=== PATIENT | female | born 1975 | race Caucasian/White ===

== ENCOUNTER → 2023-07-23 17:28 | Outpatient (REF) | payer OTHER, SELFPAY | LOC: WDC 17:28 | PROVIDERS: ATTENDING PHYSICIAN Internal Medicine; FAMILY PHYSICIAN Nurse Practitioner Women's Health | DX: Z12.31 Encounter for screening mammogram for malignant neoplasm of breast (principal) | CPT/HCPCS: 77063; 77067 ==

== ENCOUNTER → 2023-08-10 14:25 | Outpatient (REF) | payer OTHER, SELFPAY | LOC: HWRAD 14:25 | PROVIDERS: ATTENDING PHYSICIAN Nurse Practitioner; FAMILY PHYSICIAN Internal Medicine | DX: R10.84 Generalized abdominal pain (principal) | CPT/HCPCS: 76770 ==

== ENCOUNTER → 2023-09-01 06:28 | Day surgery (SDC) | payer OTHER, SELFPAY | LOC: GI 06:28 | PROVIDERS: ATTENDING PHYSICIAN Internal Medicine Gastroenterology | DX: Z12.11 Encounter for screening for malignant neoplasm of colon (principal); Z83.719 Family history of colon polyps, unspecified; K57.30 Diverticulosis of large intestine without perforation or abscess without bleeding | CPT/HCPCS: G0105 ==

== ENCOUNTER 2025-03-19 11:32 | Emergency (ER) | payer OTHER, SELFPAY ==
[2025-03-19] VITALS (11 sets, daily range): BP systolic 91–113; BP diastolic 61–77; PULSE 94–126; BMI 31.7
[2025-03-19 12:16] LABS: Hematocrit 39.9 % (37.0-47.0); Hemoglobin 12.9 g/dL (12.0-16.0); Mean Corp Hgb Conc. 32.3 g/dL (33.0-37.0); Mean Corpuscular Volume 87.9 fL (81.0-99.0); Nucleated Red Blood Cells % 0 %; Platelet Count 284 10^3/uL (130-400); Red Cell Dist. Width 13.5 % (11.5-14.5)
[2025-03-19 12:40] LABS: ALT (SGPT) 18 U/L (0-35); AST (SGOT) 24 U/L (14-36); Albumin 4.0 g/dl (3.5-5.0); Alkaline Phosphatase 83 U/L (38-126); Blood Urea Nitrogen 23 mg/dl (7-17); Calcium 9.1 mg/dl (8.4-10.2); Carbon Dioxide 26 mmol/L (22-30); Chloride 104 mmol/L (98-107); Estimated Creatinine Clearance > 125 ml/min; Glucose 120 mg/dl (70-99); Potassium 4.3 mmol/L (3.5-5.1); Sodium 134 mmol/L (135-145); Total Protein 7.0 g/dl (6.3-8.2); eGFR > 60.00
[2025-03-19 12:44] LABS: Troponin I < 0.012 ng/ml
[2025-03-19] MEDS: NSS 1000 IV (12:48)
[2025-03-19] MEDS: TORADOL 30 MG IV (12:48)
--- NOTE | 2025-03-19 13:05 | ED.GENMED ---
History of Present Illness
General
Chief Complaint: Fainting/Passed Out
Source: patient
Time Seen by Provider: 03/19/25 12:29
History of Present Illness
History of Present Illness:
49-year-old female with no significant past medical history presents to the emergency department for evaluation after she woke up last night feeling chills and as if she could not get warm accompanied with a headache typical of her usual headaches,
this morning woke up still feeling unwell prompting her to go to urgent care. At the urgent care patient had a near syncopal episode, was found to be tachycardic and had a EMS contacted to bring her to the ER. On arrival here patient notes she
does feel a little bit better than she did at the urgent care, still with the headache. She also states that when she takes a deep breath then she feels as if she is not getting the full breath. She notes no chest pain, shortness of breath at
rest, exertional dyspnea, orthopnea, lower extremity edema or any other concerns. No risk factors for DVT/PE. Patient did take some ibuprofen last night at 7 PM but nothing this morning.
Past History
Past History
ED Past Medical History: None; Negative Asthma, HTN, Hypercholesterolemia or NIDDM
ED Past Surgical History: None
Social History
Tobacco: Non-smoker
Alcohol: Occasional
Drug: None
Personal:
Living: with family
Employment: Employed
Family History
Family History: Other (noncontributary)
Review of Systems
Review of Systems
All Other Systems: ROS reviewed and negative except as documented in HPI and ROS
Phy Exam
Physical Exam
Physical Exam:
GENERAL: Alert , in no apparent distress
HEAD: Normocephalic atraumatic
EYE: conjunctiva clear
NECK: Supple, no significant adenopathy.
ENT: o/p clr, mmm.
CARDIAC: Mildly tachycardic rate, normal rhythm
LUNGS: Clear breath sounds bilaterally, no acute respiratory distress, no wheezes/rales/rhonchi
NEUROLOGICAL: Alert and oriented
SKIN: Warm and dry, skin intact.
MUSCULOSKELETAL: well perfused.
PSYCH: Normal and appropriate interaction.
Scores
Heart Failure Risk
Heart Failure Risk Score: Not Applicable
Heart Score for Chest Pain Patients
STEMI patient?: Not applicable
Withdrawal Assessment of Alcohol
Withdrawal Assessment Completed?: Not applicable
Course
Orders/Labs/Results
Orders:
Orders
03/19/25 11:35
Electrocardiogram (*1) Urgent
Reason for Study: Syncope
EKG- Treatment ONCE
03/19/25 11:57
CR Chest - 2 Views Urgent
Comment:
Reason For Exam: chest discomfort
03/19/25 12:06
Complete Blood Count/With Diff Urgent
Comprehensive Metabolic Panel Urgent
Troponin I Urgent
03/19/25 12:39
0.9% Sodium Chloride 1000 ml [Nss] 1,000 ml IV BOLUS
03/19/25 12:44
Ketorolac [Toradol] 30 mg IV NOW STA
03/19/25 12:46
Lactic Acid Q4H
Comment: CANCEL 2nd LACTIC ACID IF 1st LACTIC ACID IS LESS THAN 2
Monotest Urgent
Urinalysis Reflex To Culture Urgent
Date Specimen was Collected: 03/19/25
Time Specimen was Collected: 12:43
Urine Microscopic Reflex Cult Urgent
Blood Culture Q30M
SAMANTHA Source: Blood/Venous
Specimen Description:
Blood Culture Q30M
SAMANTHA Source: Blood/Venous
Specimen Description:
Urine Culture Urgent
SAMANTHA Source: U
Specimen Description:
Date Specimen was Collected: 03/19/25
Time Specimen was Collected: 12:43
Abnormal Lab Results
03/19/25 03/19/25
12:06 12:46
WBC 20.4 H 10^3/uL
(4.8-10.8)
MCHC 32.3 L g/dL
(33.0-37.0)
Abs Immat Gran (auto) 0.1 H 10^3/uL
(0-0.05)
Absolute Neuts (auto) 18.8 H 10^3/uL
(1.4-6.5)
Absolute Lymphs (auto) 0.5 L 10^3/uL
(1.2-3.4)
Absolute Monos (auto) 0.8 H 10^3/uL
(0.1-0.6)
Neutrophils % 92.5 H %
(42.2-75.2)
Lymphocytes % 2.6 L %
(20.5-51.1)
Sodium 134 L mmol/L
(135-145)
BUN 23 H mg/dl
(7-17)
Glucose 120 H mg/dl
(70-99)
Ur Occult Blood Reflex 1+ A
(Negative)
Leukocyte Esterase Rfl 1+ A
(Negative)
Urine RBC 3-6 A /HPF
(0-2)
Urine Bacteria (Reflex) Few A
(Negative)
Urine Albumin (Reflex) 2+ A
(Neg - Trace)
03/19/25 12:06
03/19/25 12:06
Vital Signs
Initial and Last Documented VS:
Initial Vital Signs
Temp Pulse Resp BP Pulse Ox
98.6 F 125 20 113/72 99
03/19/25 11:37 03/19/25 11:37 03/19/25 11:37 03/19/25 11:37 03/19/25 11:37
Last Documented Vital Signs
Temp Pulse Resp BP Pulse Ox
98.6 F 90 22 97/73 96
03/19/25 11:37 03/19/25 13:30 03/19/25 12:48 03/19/25 13:00 03/19/25 13:30
MDM/Problems Addressed
Differential Diagnosis Includes:
Viral syndrome
Pneumonia
UTI
Vagal event
Cardiac arrhythmia
Myocarditis/pericarditis
Orthostasis
Meningitis
ICH/Aneurysm
MDM/Problems Addressed:
49-year-old female presenting to the ER for evaluation of chills/infectious symptoms that developed overnight, headache, went to urgent care today and had a near syncopal event. Here patient appears well but remains mildly tachycardic and blood
pressure slightly hypotensive. Patient is in no acute distress. Labs were initiated on arrival which do show a leukocytosis of 20,000. I added on blood cultures, lactic acid and fluids. Toradol ordered for pain control. Disposition pending
*Radiology
Radiology exam reviewed: preliminary read by ED provider (Suspected left midlung pneumonia)
*Pulse Oximetry
SaO2: 98
Oxygen Mode of Delivery: Room air
Patient hypoxic: no
*Career Guidance Counselor Interpretation
Rate: tachycardiac
Heart Rate: 105
Rhythm: sinus
*Critical Care Note
Total Time (30-74mins, 75-104mins- exclusive of procedures): Not Applicable
Patient Management
Escalation/DeEscalation of care consider admission/obs:
Patient feeling better following IV fluids. She ultimately would prefer to be discharged home. Prescriptions for cefdinir and Zithromax sent to pharmacy. Patient aware of return precautions to the ER. Stable for discharge home.
ED Attending Note
-
Portions of this chart may have been created with voice recognition software.� Occasional wrong word or��sound alike� substitutions may have occurred due to the inherent limitations of voice recognition software.
Discharge Plan
Departure
Patient Disposition: Home (Routine Discharge)
Date of Disposition: 03/19/25
Time of Disposition: 14:43
Patient with high blood pressure during this ER visit?: No
Discharge Problem:
Pneumonia
Instructions: Community-acquired pneumonia in adults
Prescriptions:
New
cefdinir 300 mg capsule
300 mg PO BID 10 Days Qty: 20 0RF
azithromycin [Zithromax] 250 mg tablet
See Rx Instructions .ROUTE .COMPLEX Qty: 6 0RF
Rx Instructions:
Take two tabs on day 1, take 1 tab remaining 4 days
Referrals:
Francheska Huizar MD [Family Provider, Internal Medicine]
Stand Alone Forms: Back to School
Interventions
Interventions:
*Risk Screen - Suicide Last Done: 03/19/25 11:37
*General Assessment Last Done: 03/19/25 11:37
*Neglect/Abuse Screening Last Done: 03/19/25 12:16
*ED- Fall Risk Assessment Last Done: 03/19/25 11:58
*ED COVID-19 Vaccine History Last Done: 03/19/25 11:58
*ED Influenza Vaccine History Last Done: 03/19/25 11:58
ED- Cardiac Assessment Last Done: 03/19/25 11:58
ED- Neurological Assessment Last Done: 03/19/25 11:58
Discharge Date and Time
Print Language: [place]ET[place]
[2025-03-19 13:51] LABS: Urine Character Clear (Clear)
== END 2025-03-19 15:06 | disposition home or self-care (01) ==
LOC: EMR 11:32
PROVIDERS: Physician Assistant Medical; EMERGENCY PHYSICIAN Student in an Organized Health Care Education/Training Program; FAMILY PHYSICIAN Internal Medicine
DX: J18.9 Pneumonia, unspecified organism (principal); R55 Syncope and collapse; R51.9 Headache, unspecified
CPT/HCPCS: 99285; 96374; 96361; 71046; 80053; 81003; 81015; 83605; 84484; 85025; 86308; 87040; 87086; 93005